=== PATIENT | male | born 1995 | race African-American/Black ===

== ENCOUNTER 2016-12-30 13:34 | Emergency (ER) | payer OTHER ==
[~2016-12-30] VITALS: Ht 180.3 cm; Wt 72.7 kg
[2016-12-30 13:36] VITALS: BP 131/65; PULSE 70; RESP 16; TEMP 98.2; O2SAT 98
--- NOTE | 2016-12-30 13:55 | PD ---
HPI Chief Complaint: Complaint Time Seen by Provider: 13:55 Travel History International Travel<30 days: No Contact w/Intl Traveler<30days: No Traveled to known affect area: No History of Present Illness HPI 21-year-old male presents to the emergency department for evaluation of burning with urination. The patient states that for the past week he's had intermittent burning with urination and discomfort with urination. States that there was one episode where he did have white urethral discharge. He denies any scrotal or testicular pain. Denies any fever, chills, nausea, vomiting, abdominal pain, hematuria. The patient is sexually active and admits to unprotected intercourse. No other complaints. PFSH Past Medical History Medical History: Denies Significant Hx Social History Alcohol Use: No Tobacco Use: No Substance Use: No Allergies-Medications (Allergen,Severity, Reaction): Coded Allergies: No Known Allergies (Unverified , 12/30/16) Reported Meds & Prescriptions Reported Meds & Active Scripts Active No Active Prescriptions or Reported Medications Review of Systems Except as stated in HPI: all other systems reviewed are Neg Physical Exam Narrative GENERAL: Well-nourished and well-developed pleasant patient in no acute distress who is nontoxic appearing. SKIN: Warm and dry. HEAD: Normocephalic and atraumatic. EYES: No injection, drainage, or hyphema noted. PERRLA. EOMI. NECK: Supple and the trachea is midline. CARDIOVASCULAR: Regular rate and rhythm. RESPIRATORY: Breath sounds are equal bilaterally with no accessory muscle use, wheezing, rhonchi, or crackles. GASTROINTESTINAL: Abdomen is soft, non-tender, and nondistended. GENITOURINARY: Circumcised. Testes descended bilaterally without evidence of rotation. No tenderness along the scrotum or epididymis. No lesions or erythema. No urethral discharge. Performed in the presence of Lacy BARBER. NEUROLOGICAL: Awake, alert, and oriented. Normal speech and gait. Cranial nerves are grossly intact. Data Data Last Documented VS Vital Signs Date Time Temp Pulse Resp B/P Pulse Ox O2 Delivery O2 Flow Rate FiO2 12/30/16 13:36 98.2 70 16 131/65 98 Room Air Orders Urinalysis - C+S If Indicated (12/30/16 13:45) Gc And Chlamydia Pcr (12/30/16 13:45) Ceftriaxone Inj (Rocephin Inj) (12/30/16 14:00) Lidocaine 1% Inj (50 Ml) (Xylocaine 1% I (12/30/16 14:00) Azithromycin (Zithromax) (12/30/16 14:00) Urine Culture (12/30/16 14:00) Labs Laboratory Tests Test 12/30/16 14:00 Urine Color YELLOW Urine Turbidity HAZY Urine pH 6.5 Urine Specific [place] 1.033 Urine Protein 30 mg/dL Urine Glucose (UA) NEG mg/dL Urine Ketones TRACE mg/dL Urine Occult Blood TRACE Urine Nitrite NEG Urine Bilirubin NEG Urine Urobilinogen 2.0 MG/DL Urine Leukocyte Esterase LARGE Urine RBC 12 /hpf Urine WBC /hpf Urine Mucus FEW /lpf Microscopic Urinalysis Comment CULTURE INDICATED MDM Medical Decision Making Medical Screen Exam Complete: Yes Emergency Medical Condition: Yes Differential Diagnosis Urethritis versus cystitis versus STI Narrative Course 21-year-old male presents to the emergency department for evaluation of burning and painful urination for one week with urethral discharge. Patient is afebrile , vital signs are stable. examination is unremarkable. Discussed with the patient that his symptoms are likely secondary to an STI. We'll go ahead and treat the patient empirically for gonorrhea and chlamydia with Rocephin and azithromycin. Urinalysis shows 30 protein, trace ketones, trace occult blood, large leukocyte esterase, 12 red blood cells, innumerable white blood cells, few mucus. Culture is pending. Gonorrhea and Chlamydia is pending. Patient will be treated with Cipro for urethritis and has been given Rocephin and azithromycin to cover for gonorrhea and chlamydia. Discussed safe sex practices. Advised follow-up with his PCP. Patient verbalizes understanding and agreement with treatment plan. Diagnosis Primary Impression: Urethritis Referrals: Primary Care Physician Patient Instructions: General Instructions, Nonspecific Urethritis in Men (ED) Additional Instructions: Take medication as prescribed with food and a full glass of water. Follow-up with your Primary Care Physician. Return to the ED for any acute worsening of symptoms. Med/Other Pt SpecificInfo: Prescription(s) given Scripts Ciprofloxacin (Cipro)500 Mg Gpk395 Mg PO BID 7 Days Ref 0 Prov:Alvina Mcintyre MD 12/30/16 Disposition: 01 DISCHARGE HOME Condition: Stable Breanna Landers Dec 30, 2016 13:55
[2016-12-30] MEDS ORDERED: cefTRIAXone 250 MG VIAL IM ONE (14:00)
[2016-12-30] MEDS ORDERED: LIDOCAINE HCL 1% 50 ML VIAL XX ONE (14:00)
[2016-12-30] MEDS ORDERED: AZITHROMYCIN 250 MG TAB PO ONE (14:00)
[2016-12-30 14:24] LABS: BLOOD, URINE TRACE (NEG); COMMENT (UR) CULTURE INDICATED; CULTURE IF INDICATED CULTURE INDICATED; GLUCOSE,URINE NEG (NEG); KETONE, URINE TRACE mg/dL (NEG); MUCUS URINE FEW /lpf (OCC); NITRITE,URINE NEG (NEG); PH, URINE 6.5 (5.0-8.5); URINE COLOR YELLOW (YELLW/STRAW)
[2016-12-30] MEDS ORDERED: CIPR-9 PO (14:31)
[2016-12-31 13:02] LABS: CHLAMYDIA PCR NOT DETECTED (NOT DETECT); NEISSERIA PCR DETECTED (NOT DETECT)
== END 2016-12-30 14:55 | disposition home or self-care (01) ==
LOC: NEPB 13:34
DX: N34.2 Other urethritis (principal)
CPT/HCPCS: 81001; 87086; 87491; 87591; 96372; 99283; J0696